=== PATIENT | male | born 1970 | race Caucasian/White ===

== ENCOUNTER → 2019-12-03 | Outpatient (CLI) | payer OTHER ==
[~2019-12-03] MED LIST: AMLO10 PO; CEPH500 PO; CHOLESTEROL MED PO; HYDACE5 PO; PARO20 PO; PRAV10 PO
== END | disposition home or self-care (01) ==
LOC: LAB EV 07:36 → LAB SHORT 07:36
DX: M10.9 Gout, unspecified (principal)
CPT/HCPCS: 84550

== ENCOUNTER → 2021-08-25 | Outpatient (CLI) | payer OTHER | LOC: LAB SHORT 11:00 → LAB 11:00 | DX: M67.471 Ganglion, right ankle and foot (principal); M79.671 Pain in right foot; T24.202A Burn of second degree of unspecified site of left lower limb, except ankle and foot, initial encounter | CPT/HCPCS: 87070; 87075; 87205; 88108 ==

== ENCOUNTER → 2022-07-17 | Outpatient (CLI) | payer OTHER ==
[~2022-07-17] MED LIST changes: +BUPR150ER PO; +Benicar40 MG PO
== END | disposition home or self-care (01) ==
LOC: LAB 16:28 → LAB SHORT 16:28
DX: L01.00 Impetigo, unspecified (principal)
CPT/HCPCS: 87070; 87147; 87205

== ENCOUNTER → 2022-08-30 | Outpatient (CLI) | payer OTHER | END | disposition home or self-care (01) | LOC: LAB 11:30 → LAB SHORT 11:30 | DX: S94.21XA Injury of deep peroneal nerve at ankle and foot level, right leg, initial encounter (principal); M79.671 Pain in right foot; M67.471 Ganglion, right ankle and foot; R26.0 Ataxic gait; G60.3 Idiopathic progressive neuropathy | CPT/HCPCS: 87070; 87075; 87205 ==

== ENCOUNTER → 2023-02-28 | Outpatient (CLI) | payer OTHER | END | disposition home or self-care (01) | LOC: LAB SHORT 07:53 → LAB 07:53 | DX: M25.562 Pain in left knee (principal) | CPT/HCPCS: 84550 ==

== ENCOUNTER 2023-07-14 12:47 | Day surgery (SDC) | payer OTHER ==
[~2023-07-14] VITALS: Ht 177.8 cm; Wt 102.5 kg
[2023-07-14] MEDS ORDERED: ONE DAILY TABL1 EAC1 PO (14:08)
[2023-07-14] MEDS ORDERED: NAPR220 PO (14:08)
[2023-07-14] MEDS ORDERED: ASHWAGANDHA PO (14:09)
[2023-07-14] MEDS ORDERED: FISH OIL 1,2001 EAC7 PO (14:10)
[2023-07-14] MEDS ORDERED: ONE DAILY MUL400 MCG PO (14:11)
[2023-07-14 15:59] VITALS: BP 126/83
== END 2023-07-14 15:40 | disposition home or self-care (01) ==
LOC: ORSCSDS 12:47
PROVIDERS: Internal Medicine Gastroenterology
PROC: 0DBL8ZX Excision of Transverse Colon, Via Natural or Artificial Opening Endoscopic, Diagnostic (ICD-10-PCS; principal; 2023-07-14 14:00)
PROC: 0DBN8ZX Excision of Sigmoid Colon, Via Natural or Artificial Opening Endoscopic, Diagnostic (ICD-10-PCS; principal; 2023-07-14 14:00)
DX: Z12.11 Encounter for screening for malignant neoplasm of colon (principal); C18.7 Malignant neoplasm of sigmoid colon; D12.3 Benign neoplasm of transverse colon; I10 Essential (primary) hypertension; Z79.899 Other long term (current) drug therapy
CPT/HCPCS: 88305; J2704; J7120

== ENCOUNTER 2023-09-07 07:09 | Inpatient (IN) | payer OTHER ==
[~2023-09-07] VITALS: Ht 175.3 cm; Wt 98.9 kg
[2023-09-07] VITALS (26 sets, daily range): BP systolic 11–135; BP diastolic 66–104
[~2023-09-07 07:09] MED LIST changes: +ASHWAGANDHA PO; +FISH OIL 1,2001 EAC7 PO; +NAPR220 PO; +OMEP20ER PO; +ONE DAILY MUL400 MCG PO; +ONE DAILY TABL1 EAC1 PO; +RAYOS PO; +SILD25T PO; +TRAM50 PO; +[UNRECOGNIZED DRUG - OTHER] PO
--- NOTE | 2023-09-07 08:26 | NUR ---
Ambulatory in Day Surgery. Surgical site prepped with 2% Chlorhexidine cloth wipe. History, Chart, Medications and Allergies reviewed before start of procedure. Lungs clear T/O to Auscultation. Patient confirms NPO status and agrees with scheduled surgery.
--- NOTE | 2023-09-07 09:22 | NUR ---
EPIDURAL PLACEMENT PT CONSENTING TO EPIDUAL W DR. PITTMAN. TIME OUT PERFORMED AT 0907 AT BEDSIDE. EPIDURAL PLACED W/O COMPLICATIONS, VSS.
--- NOTE | 2023-09-07 14:23 | NUR ---
Pt. is awake but resting in bed. Spouse and other family are present and welcome my visit. Facilitate a life review and consider matters of nona and belief. Listen with empathy, interest and engagement. Pt. displays evidence of awareness and engagement. Family at bedside are supportive. Prayed with Pt. and family. Pt. and family verbalize gratitude for the spiritual care visit and welcome this polisher implant to return.
--- NOTE | 2023-09-07 14:24 | NUR ---
POST OP: REPORT RECEIVED FROM SERVICE CAPTAIN. PT TO UNIT AT 1305. A/O, EMOTIONAL AND TEARFUL BUT REASSURED FROM FAMILY AT BEDSIDE. VSS. EPIDURAL WNL, SEE ASSESSMENT. SURGICAL SITE WNL. PT REPORTS PAIN 5/10 ENCOURAGED TO USE EPIDURAL CANDY BUTCHER BUTTON. PT ORIENTED TO ROOM AND CALL LIGHT. PT AND FAMILY DENY SMOKING OR IGNITION SOURCES. CAPLAIN IN ROOM AT ABOUT 1400
--- NOTE | 2023-09-07 17:12 | NUR ---
SUMMARY: NO ACUTE CHANGE SINCE POST OP,A/O VSS. EPIDURAL CHECKS WNL, SEE EPIDURAL ASSESSMENTS. PT REPORTS THAT PAIN IS TOLERABLE AND IS 4/10. SURGICAL SITE WNL, URI COMPRESSED. PT TOLERATING LIQ DIET, IV FLUIDS IN FUSING...NO ACUTE SAFETY CONCERNS. PT FAMILY AT BEDSIDE
[2023-09-08] VITALS (15 sets, daily range): BP systolic 104–123; BP diastolic 69–87
--- NOTE | 2023-09-08 05:04 | NUR ---
SHIFT SUMMARY POD 1 SIGMOID CHOLECTOMY. NO ACUTE CHANGES OVERNIGHT. VS WNL FOR PT. TOLERATING CLEAR LIQUID DIET. PT IS STILL ON BEDREST AT THIS TIME. Q1 EPIDURAL QHECKS THROUGHOUT THE NIGHT. PT HAS REGAINED SENSATION ON R SIDE COMPLETELY AND ALMOST FULLY REGAINED SENSATION ON LEFT SIDE, ANTICIPATED AMBULATION TODAY. PAIN MANAGED THROUGH CONTINUOUS EPIDURAL & BOLUS. MIDLINE URI DRESSING IS C/D/I, SMALL AMOUNTS OF SANGUINOUS DRAINAGE TOWARD BOTTOM OF DRESSING. BOWER IS DRAINING YELLOW URINE TO GRAVITY. PT SIGNIFICANT OTHER AT BEDSIDE OVERNIGHT. CALL LIGHT WITHIN REACH, BED IN LOWEST POSITION, WILL REPORT TO DAY RN.
[2023-09-08 05:08] LABS: BASOPHILS ABSOLUTE AUTO 0.03 K/mm3 (0.00-0.23); BASOPHILS PERCENT AUTO 0 % (0-2); EOSINOPHILS PERCENT AUTO 0 % (0-6); Hematocrit 36.7 % (37.0-53.0); Hemoglobin 12.4 g/dL (13.5-17.5); IMMATURE GRAN ABSOLUTE AUTO 0.04 K/mm3 (0.00-0.10); IMMATURE GRAN PERCENT AUTO 0 % (0-1); LYMPHOCYTES ABSOLUTE AUTO 1.64 K/mm3 (0.84-5.20); LYMPHOCYTES PERCENT AUTO 13 % (21-46); MONOCYTES ABSOLUTE AUTO 1.21 K/mm3 (0.16-1.47); MONOCYTES PERCENT AUTO 10 % (4-13); Mean Corpuscular HGB Conc 33.8 g/dL (31.5-36.5); Mean Corpuscular Volume 86 fL (80-100); Mean Platelet Volume 9.5 fL (9.1-12.4); NEUTROPHILS ABSOLUTE AUTO 9.88 K/mm3 (1.96-9.15); NEUTROPHILS PERCENT AUTO 77 % (41-73); Platelet Count 282 K/mm3 (150-400); RDW Standard Deviation 40.9 fL (35.1-46.3); Red Blood Cell Count 4.27 M/mm3 (4.30-5.90)
[2023-09-08 05:39] LABS: Bun/Creatinine Ratio 9.9 (12.0-20.0); Calcium, Blood 8.5 mg/dL (8.5-10.1); Creatinine, Blood 1.01 mg/dL (0.60-1.20); Potassium, Blood 4.3 mmol/L (3.5-5.5)
--- NOTE | 2023-09-08 18:55 | NUR ---
SHIFT SUMMARY POD 1 SIGMOID COLLECTOMY, A/XO4, VSS, TOLERATING DIET, PAIN MANAGED WITH EPIDURAL WHICH WAS ADJUSTED AT THE START OF THE SHIFT. MD DISCUSSE PATHOLOGY WITH THE PATIENT AND HIS . NO ACUTE EVENTS THIS SHIFT, CALL LIGHT IN REACH
--- NOTE | 2023-09-08 19:31 | NUR ---
PER DR WELCH EPIDURAL CLARIFICATION 20 CC/HR MAX LIMIT. EPIDURAL SETTINGS VERIFIED W/PRIMARY RN
--- NOTE | 2023-09-08 19:34 | NUR ---
EPIDURAL PT EPIDURAL SITE TAPE IS ROLLING/LIFTING DUE TO PT SWEATING. ENTIRE SITE IS STILL COVERED ENTIRELY. PT REPORTS INCREASED PAIN WHEN COUGHING. PT EDUCATED ON BOLUS USE.
[2023-09-09] VITALS (7 sets, daily range): BP systolic 125–142; BP diastolic 79–97
--- NOTE | 2023-09-09 01:31 | NUR ---
PAIN MANAGEMENT THE PATIENT CALLED AND REPORTED A SUDDEN SHARP INCREASE IN LEFT KNEE PAIN. REPORTING 9/10 PAIN, BURNING AND SHARP. PT HAS FULL SENSATION, BRISK CAP REFILL, AND LLE IS WARM TO THE TOUCH. PT REPOSITIONED MULTIPLE TIMES, ATTEMPTED TO STAND, AND ICED KNEE IN ATTAMPT TO ASSESS IF THE PAIN WOULD DECREASE. ALL ATTEMPTS FAILED. DR. WELCH CONTACTED AND UPDATED ON SITUATION. OBTAINED ORDER FOR MORPHONE 2-[address] AWARE OF THE EPIDURAL AND STATED THAT BECAUSE IT WOULD BE COMING OUT SOON AND THAT BREAKTHROUGH MEDICATION IS OKAY AT THIS TIME. PLAN TO CONTACT DR. WELCH WITH FURTHER CONCERNS.
--- NOTE | 2023-09-09 04:04 | NUR ---
SHIFT SUMMARY POD 2 SIGMOID CHOLECTOMY. VS WNL FOR PT. TOLERATING CLEAR LIQUID DIET, WILL ADVANCE TO FULL LIQUIDS THIS AM. PT WAS ABLE TO STAND AT BEDSIDE WITH FWW. Q4 EPIDURAL CHECKS, PT HAS MAINTAINED FULL SENSATION. PAIN MANAGED THROUGH EPIDURAL FOR ABD PAIN, 1 DOSE OF MORPHIENE GIVEN FOR L KNEE PAIN. MIDLINE URI, C/D/I, SMALL AMOUNT OF SANGUIONOUS DRAINAGE REMAINS UNCHANGED. BOWER IS DRAINING YELLOW URINE TO GRAVITY. PT SIGNIFICANT OTHER AT BEDSIDE. CALL LIGHT WITHIN REACH, BED IN LOWEST POSITION, WILL REPORT TO DAY RN.
--- NOTE | 2023-09-09 09:46 | NUR ---
PAIN PT REPORTS PAIN IN LEFT KNEE DURING EPIDURAL ASSESSMENT THIS AM, ABD PAIN IS MINIMAL AND IS MORE OF A DISCOMFORT PER PATIENT.
--- NOTE | 2023-09-09 10:00 | NUR ---
REPORT RECEIVED FROM VIJAY ST. NEW EPIDURAL BAG AT THIS TIME ADMINISTERED BY MACIEL
--- NOTE | 2023-09-09 17:26 | NUR ---
SUMMARY: NO ACUTE CHANGE SINCE RECEIVED REPORT. POD 2 SIGMOID COLECTOMY. VSS, A/O. ML URI WNL. EPIDURAL SITE IS WNL NO CHANGE IN INFUSION SETTINGS, SEE EPIDURAL ASSESSMENTS. PT'S L KNEE HAS HAD A GOUT FLARE UP, SEE DR. LUCAS'S ORDER FOR FLUID ASPIRATION. PER RADIOLOLGY, UNABLE TO COMPLETE TODAY DUE TO LOW STAFFING. PT CONTINUES TO RATE PAIN 5/10 IN KNEE AND AT SURGICAL SITE. PRN MORPHINE GIVEN AND PT ENCOURAGED TO USE EPIDURAL BOLUS BUTTON. PT ABLE TO SIT AT EDGE TODAY, BUT DUE TO PAIN IN L KNEE, UNABLE TO AMBULATE. PLAN IS FOR EPIDURAL DC TOMORROW BY DR. PITTMAN
--- NOTE | 2023-09-10 04:55 | NUR ---
SHIFT SUMMARY NO ACUTE CHANGES TO REPORT OVERNIGHT, PT HAS RESTED T/O THE SHIFT. EPIDURAL IS IN PLACE, SITE WNL. PT REPORTS FULL SENSATION IN EXT. PLAN IS FOR REMOVAL OF EPIDURAL TODAY. PT HAS NOT REQUIRED ANY PRN'S FOR PAIN. LEFT KNEE STILL SWOLLEN AND PAINFUL. PT HAS BEEN UP IN THE CHAIR WITH 1 ASSIST. MIDLINE INCISION WITH URI, WNL. BOWL TONES HYPERACTIVE, AND PT PASSING GAS. NO N/V. BOWER IN PLACE PATENT AND DRAINING. VITALS STABLE. BED IN LOWEST POSITION, CALL LIGHT WITHIN REACH.
[2023-09-10 05:06] VITALS: BP 126/85
[2023-09-10 07:18] VITALS: BP 144/89
[2023-09-10 11:59] VITALS: BP 145/78
--- NOTE | 2023-09-10 12:00 | NUR ---
EPIDURAL REMOVED BY BENITO HO
[2023-09-10 14:44] VITALS: BP 127/81
--- NOTE | 2023-09-10 17:35 | NUR ---
SHIFT SUMMARY PT A&OX4, VSS/RA, KASANDRA PO, PAIN MANAGED WITH NORCO, BOWER REMOVED AT 1700/ AWAITING PVR, AMB 1 PP MOD ASSIST WITH FWW. POD3 SIG COL, URI DRY/INTACT/WNL. WILL REPORT TO ONCOMING NOC RN.
[2023-09-10 19:32] VITALS: BP 120/75
--- NOTE | 2023-09-11 03:56 | NUR ---
SHIFT SUMMARY NO ACUTE CHANGES TO REPORT OVERNIGHT, PT HAS RESTED IN BED T/O THE NIGHT. PT STILL REPORTING ABD PAIN AND LEFT KNEE PAIN THAT IS RELIEVED WITH MEDS PER EMAR. MIDLINE INCISION WNL. PT HAS VOIDED SINCE BOWER REMOVAL. BOWEL TONES HYPERACTIVE AND PT REPORTS PASSING GAS. VITALS ARE STABLE. PLAN OF CARE UNCHANGED. BED IN LOWEST POSITION, CALL LIGHT WITHIN REACH.
[2023-09-11 04:56] VITALS: BP 139/97
[2023-09-11 07:39] VITALS: BP 141/90
[2023-09-11 15:04] VITALS: BP 125/88
--- NOTE | 2023-09-11 16:39 | NUR ---
SHIFT SUMMARY PT A&OX4, VSS/RA, KASANDRA PO, PAIN MANAGED WITH NORCO, VOIDING, AMB 1 PP MOD ASSIST WITH FWW R/T TED KNEE PAIN. POD4 SIG COL, URI DRY/INTACT/WNL. AT BEDSIDE. WILL REPORT TO ONCOMING NOC RN.
[2023-09-11 20:00] VITALS: BP 133/66
[2023-09-12 05:20] VITALS: BP 127/96
--- NOTE | 2023-09-12 06:02 | NUR ---
SUMMARY PT HOPING FOR KNEES TO HAVE TAPPING OF "FLUID" TODAY, BUT ALSO STATES KNEES APPEAR LESS SWOLLEN THAN THE PREVIOUS SHIFTS.
[2023-09-12 07:15] VITALS: BP 149/99
[2023-09-12] MEDS ORDERED: Norco 7.5-3251 EACH PO (14:51)
[2023-09-12 15:18] VITALS: BP 142/95
--- NOTE | 2023-09-12 15:45 | NUR ---
DISCHARGE PT D/C AT APPROXIMATELY 15:30 VIA WC TO POV. PT REPORTS PAIN IS WELL MANAGED. PROVIDED D/C INSTRUCTIONS BY Matt BLOOM RN. PT AND EXPRESSED UNDERSTANDING AND HAD NO QUESTIONS. VSS, BREATHING EVEN AND NONLABORED. PT AFEBRILE.
--- NOTE | 2023-09-12 15:48 | NUR ---
SHIFT SUMMARY PAIN MANAGED PER EMR. PT INDEPENDENT IN ROOM. PT IS PASSING GAS, BOWEL SOUNDS NORMOACTIVE IN ALL QUANDRANTS. VSS, LUNGS CTA BILATERALLY. PT WAS DIAPHORETIC AND PAINFUL THIS AM, THIS RESOLVED AFTER ADMINISTRATION OF PAIN MEDS PER EMR. PT RESTED COMFORTABLY FOR MOST OF SHIFT WITH AT BEDSIDE. D/C AT APPROXIMATELY 1530.
== END 2023-09-12 15:30 | disposition home or self-care (01) | DRG 330 ==
LOC: SURS 07:09 → PRE IP 08:45 → SURS 13:18
PROVIDERS: ADMIT Surgery
PROC: 0WQF0ZZ Repair Abdominal Wall, Open Approach (ICD-10-PCS; 2023-09-07)
PROC: 0DBN0ZZ Excision of Sigmoid Colon, Open Approach (ICD-10-PCS; principal; 2023-09-07 08:45)
DX: C18.7 Malignant neoplasm of sigmoid colon (principal); Q43.8 Other specified congenital malformations of intestine; K42.9 Umbilical hernia without obstruction or gangrene; N52.9 Male erectile dysfunction, unspecified; F41.9 Anxiety disorder, unspecified; G89.29 Other chronic pain; M79.673 Pain in unspecified foot; I10 Essential (primary) hypertension; E78.2 Mixed hyperlipidemia; Z90.49 Acquired absence of other specified parts of digestive tract; Z87.891 Personal history of nicotine dependence
CPT/HCPCS: 36415; 80048; 85025; 88305; 94760; A9270; J0295; J1100; J1650; J1885; J2250; J2270; J2405; J2704; J3010; J7120; J7512; V2790

== ENCOUNTER 2024-08-30 06:52 | Day surgery (SDC) | payer BC ==
[~2024-08-30] VITALS: Ht 177.8 cm; Wt 108.7 kg
[~2024-08-30 06:52] MED LIST changes: +Norco 7.5-3251 EACH PO
[2024-08-30] MEDS ORDERED: propofoL 50 ML IV ONE (07:31)
[2024-08-30] MEDS ORDERED: Lactated Ringer's 1,000 ML IV ONE ×2 (07:31→08:04)
[2024-08-30] MEDS ORDERED: BUPR150ER (07:59)
[2024-08-30 09:15] VITALS: BP 100/67
== END 2024-08-30 09:13 | disposition home or self-care (01) ==
LOC: ORSCSDS 06:52
PROVIDERS: Specialist
PROC: 0DJD8ZZ Inspection of Lower Intestinal Tract, Via Natural or Artificial Opening Endoscopic (ICD-10-PCS; principal; 2024-08-30 08:00)
DX: Z85.038 Personal history of other malignant neoplasm of large intestine (principal); Z83.719 Family history of colon polyps, unspecified; I10 Essential (primary) hypertension; E78.5 Hyperlipidemia, unspecified; Z79.899 Other long term (current) drug therapy
CPT/HCPCS: J2704; J7120

== ENCOUNTER 2025-09-16 10:37 | Day surgery (SDC) | payer BC ==
[~2025-09-16] VITALS: Ht 177.8 cm; Wt 110.8 kg
[~2025-09-16 10:37] MED LIST changes: +BUPR150ER
[2025-09-16] MEDS ORDERED: HYDCHL25 (10:47)
[2025-09-16 12:49] VITALS: BP 139/84
== END 2025-09-16 12:25 | disposition home or self-care (01) ==
LOC: ORSCSDS 10:37
PROVIDERS: Internal Medicine Gastroenterology
PROC: 0DJD8ZZ Inspection of Lower Intestinal Tract, Via Natural or Artificial Opening Endoscopic (ICD-10-PCS; principal; 2025-09-16 12:00)
DX: Z12.11 Encounter for screening for malignant neoplasm of colon (principal); Z85.038 Personal history of other malignant neoplasm of large intestine
CPT/HCPCS: J2704; J7120